=== PATIENT | female | born 1995 | race Hispanic/Latino ===

== ENCOUNTER 2023-12-26 18:35 | Emergency (ER) | payer MEDICARE, SELFPAY ==
[2023-12-26 18:36] VITALS: BMI 29.4
[2023-12-26 18:40] VITALS: BP 132/82
[2023-12-26 18:55] LABS: % Basophils 1.2 % (0-2); % Eosinophils 4.9 % (0-6); % Immature Granulocytes 0.2 % (0-0.5); % Lymphocytes 35.4 % (20.5-51.1); % Monocytes 10.2 % (1.7-9.3); % Neutrophils 48.1 % (42.2-75.2); Absolute Basophils 0.1 10^3/uL (0-0.2); Absolute Eosinophils 0.2 10^3/uL (0-0.7); Absolute Lymphocytes 1.7 10^3/uL (1.2-3.4); Absolute Monocytes 0.5 10^3/uL (0.1-0.6); Absolute Neutrophils 2.4 10^3/uL (1.4-6.5); Hematocrit 29.6 % (37.0-47.0); Hemoglobin 8.8 g/dL (12.0-16.0); Mean Corp Hgb Conc. 29.7 g/dL (33.0-37.0); Mean Corpuscular Hgb 23.8 pg (27.0-31.0); Mean Corpuscular Volume 80.2 fL (81.0-99.0); Mean Platelet Volume 10.4 fL (7.4-10.4); Nucleated Red Blood Cells % 0 %; Platelet Count 388 10^3/uL (130-400); Red Blood Cell Count 3.69 10^6/uL (4.20-5.40); Red Cell Dist. Width 16.7 % (11.5-14.5); White Blood Cell Count 4.9 10^3/uL (4.8-10.8)
[2023-12-26 19:16] LABS: ALT (SGPT) 14 U/L (0-35); AST (SGOT) 26 U/L (14-36); Albumin 4.4 g/dl (3.5-5.0); Alkaline Phosphatase 69 U/L (38-126); Blood Urea Nitrogen 11 mg/dl (7-17); Calcium 9.4 mg/dl (8.4-10.2); Carbon Dioxide 23 mmol/L (22-30); Chloride 103 mmol/L (98-107); Glucose 101 mg/dl (70-99); Potassium 4.1 mmol/L (3.5-5.1); Sodium 135 mmol/L (135-145); Total Bilirubin 1.4 mg/dl (0.2-1.3); Total Protein 7.8 g/dl (6.3-8.2); eGFR > 60.00
--- NOTE | 2023-12-26 20:10 | ED.GENMED ---
History of Present Illness
General
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
Source: patient
Exam Limitations: none
Time Seen by Provider: 12/26/23 19:42
Travel History
Have you had any contact with someone who has COVID-19?: No
Do you have any symptoms of coronavirus? Fever > 100 degrees, chills, cough, shortness of breath, sore throat, loss of taste or smell, muscle aches, or headache?: No
History of Present Illness
History of Present Illness:
This is a 28 year old female that comes in with multiple complaints. States that she has been having a hard time breathing and she has pain in the epigastric area. State that she has blood with urination States that she has not had a period since
the last month. States that she has chest discomfort with SOB, nausea and a headache, with urinary burning. Denies any fever, chills, vomiting, diarrhea, dizziness.
Past History
Past History
ED Past Medical History: None; Negative Asthma, HTN, Hypercholesterolemia or NIDDM
ED Past Surgical History: Gynecological (D&C, , ) and Other (Nerve replacement right arm)
Social History
Tobacco: Smoker
Alcohol: Occasional
Personal: Single
Living: with family
Review of Systems
Review of Systems
All Other Systems: ROS reviewed and negative except as documented in HPI and ROS
Constitutional: Reports no symptoms; Denies fever or chills
EENT: Reports no symptoms
Respiratory: Reports trouble breathing; Denies cough
Cardiac: Reports chest pain
ABD/GI: Reports abdominal pain (Upper abd into chest)
: Reports dysuria and bleeding; Denies frequency or urgency
Musculoskeletal: Reports no symptoms
Skin: Reports no symptoms
Neurological: Reports headache; Denies dizzy
Psychiatric: Reports no symptoms
Phy Exam
General Physical Exam
General Presentation: well appearing and no apparent distress
General age: appears stated age
General Skin: warm and dry
General Habitus: normal
General Mental: alert
General Hydration: appears well hydrated
ENT Exam
ENT Exam: TM's normal, pharynx normal and neck supple
Eye Exam
Eye Exam: EOMI
Cardiovascular Exam
Cardiovascular Exam: regular rate/rhythm, no edema, no murmur and normal peripheral pulses
Pulmonary Exam
Pulmonary Exam: lungs clear, no respiratory distress, no rales, chest non tender, no crackles, no rhonchi, no wheezing and no cough
Gastrointestinal Exam
Gastrointestinal Exam: normal bowel sounds, soft, no organomegaly, no pulsatile mass, non distended and tender (epigastric area with palpation and lower abd tenderness)
Musculoskeletal Exam
Musculoskeletal Exam: full ROM and no edema
Skin Exam
Skin Exam: normal color, warm/dry, no rash and no petechia
Psychiatric Exam
Psychiatric Exam: normal mood/affect
Course
Orders/Labs/Results
Orders:
Orders
12/26/23 18:46
EKG [Electrocardiogram (*1)] Urgent
Reason for Study: Shortness of Breath
EKG- Treatment ONCE
12/26/23 18:51
Type+Screen Urgent
CBC/With Diff [Complete Blood Count/With Diff] Urgent
CMP [Comprehensive Metabolic Panel] Urgent
12/26/23 19:26
Add On- LAB Urgent
Tests Added?: beta hcg quantative
12/26/23 19:27
US Pelvis Only (non-obstetric) Urgent
Comment:
Reason For Exam: post bleeding
12/26/23 19:46
Beta HCG Quantitative Urgent
Comment: ADD ON
12/26/23 20:09
0.9% Sodium Chloride 1000 ml [Nss] 1,000 ml IV BOLUS
Pantoprazole [Protonix IV] 40 mg IV NOW STA
12/26/23 20:10
CR Chest - 2 Views Urgent
Comment:
Reason For Exam: SOB, chest pain
12/26/23 20:28
D-Dimer Urgent
12/26/23 21:05
CT Chest Pe Study Urgent
Comment:
Reason For Exam: Chset pain, SOB, elevated D-dimer
12/26/23 23:00
Urinalysis Reflex To Culture Urgent
Date Specimen was Collected: 12/26/23
Time Specimen was Collected: 22:52
Urine Microscopic Reflex Cult Urgent
Urine Culture Urgent
OMERO Source: U
Specimen Description:
Date Specimen was Collected: 12/26/23
Time Specimen was Collected: 22:52
Abnormal Lab Results
12/26/23 12/26/23 12/26/23
18:51 20:28 23:00
RBC 3.69 L 10^6/uL
(4.20-5.40)
Hgb 8.8 L g/dL
(12.0-16.0)
Hct 29.6 L %
(37.0-47.0)
MCV 80.2 L fL
(81.0-99.0)
MCH 23.8 L pg
(27.0-31.0)
MCHC 29.7 L g/dL
(33.0-37.0)
RDW 16.7 H %
(11.5-14.5)
Monocytes % 10.2 H %
(1.7-9.3)
D-Dimer 1.12 H ug/mlFEU
(0.00-0.50)
Glucose 101 H mg/dl
(70-99)
Total Bilirubin 1.4 H mg/dl
(0.2-1.3)
Leukocyte Esterase Rfl 2+ A
(Negative)
Urine WBC (Reflex) 16-20 A /HPF
(0-5)
Antibody Screen Positive A
(Negative)
12/26/23 18:51
12/26/23 18:51
H/H low, Anemia, Glucose nonfasting. Total jimi very slightly elevated. D-dimer elevated (CT negative), Urine positive for infection (patient is having burning will treat)
Vital Signs
Initial and Last Documented VS:
Initial Vital Signs
Temp Pulse Resp BP Pulse Ox
96.1 F L 72 16 132/82 100
12/26/23 18:40 12/26/23 18:40 12/26/23 18:40 12/26/23 18:40 12/26/23 18:40
Last Documented Vital Signs
Temp Pulse Resp BP Pulse Ox
96.1 F L 72 16 132/82 100
12/26/23 18:40 12/26/23 18:40 12/26/23 18:40 12/26/23 18:40 12/26/23 18:40
MDM/Problems Addressed
Differential Diagnosis Includes:
Gastritis, UTI
MDM/Problems Addressed:
This is a 28 year old female that comes in with multiple complaints. States that she has not had a period since last month after the . State that she has bleeding in her urine and that she has epigastric discomfort.
Will get US and medication for Gastritis. Will check lab.
Back into see patient. reviewed labs and CT scan and US. Will treat for UTI and discharge home.
Chronic conditions affecting care:
NA
Acute Exacerbation and/or Progression of Chronic Illness:
NA
*Radiology
Radiology exam reviewed: radiology read reviewed (CT chest-NO CTA evidence for acute central pulmonary arterial embolus. US-NO sonographic evidence for abdominal endometrial thickening or retained products of conception in the endometrial canal. )
*Pulse Oximetry
Patient hypoxic: no
*EKG
Interpreted by ED Provider?: Yes
Heart Rate: 63
Rate: normal
Rhythm: sinus
[place]: normal axis
Interval: normal interval
QRS Pattern: normal QRS
Ischemia: no ischemia
*[employer] [place] Interpretation
Rate: [place] [employer]- N/A
*Critical Care Note
Total Time (30-74mins, 75-104mins- exclusive of procedures): Not Applicable
ED Attending Note
-
Portions of this chart may have been created with voice recognition software.� Occasional wrong word or��sound alike� substitutions may have occurred due to the inherent limitations of voice recognition software.
Discharge Plan
Departure
Patient Disposition: Home (Routine Discharge)
Date of Disposition: 12/26/23
Time of Disposition: 23:41
Patient with high blood pressure during this ER visit?: Yes
Condition: Good
Covid-19: Not Applicable
Discharge Problem:
UTI (urinary tract infection)
Instructions: Urinary Tract Infection, Adult (DC), BLOOD PRESSURE
Prescriptions:
New
sulfamethoxazole-trimethoprim [Bactrim DS] 800-160 mg tablet
1 tab PO BID Qty: 13 0RF
Referrals:
NONE,* [Family Provider] -
Activity Restrictions/Additional Instructions:
As discussed, your blood work shows that you are anemic. Please start on an Iron Supplement daily. Your CT scan of the chest is normal along with you Ultrasound. 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 You have been given your
first dose of antibiotic here and prescription for home has been sent to your Pharmacy. IF YOU HAVE ANY OTHER CONCERNS PLEASE RETURN TO THE EMERGENCY ROOM.
Interventions
Interventions:
*Risk Screen - Suicide Last Done: 12/26/23 18:40
*General Assessment Last Done: 12/26/23 18:40
*Neglect/Abuse Screening Last Done: 12/26/23 18:40
ED- Fall Risk Assessment Last Done: 12/26/23 21:18
*ED COVID-19 Vaccine History Last Done: 12/26/23 18:40
ED-Female Genitourinary Assessment Last Done: 12/26/23 21:18
Discharge Date and Time
Print Language: MONGOLIAN
[2023-12-26 20:39] LABS: Beta HCG Quantitative < 2.39 mIU/ml
[2023-12-26] MEDS: PROTONIX IV 40 MG IV (20:42)
[2023-12-26] MEDS: NSS 1000 IV (20:42)
[2023-12-26 20:52] LABS: D-Dimer 1.12 ug/mlFEU (0.00-0.50)
[2023-12-26 23:09] LABS: Urine Albumin Negative (Neg - Trace); Urine Bilirubin Negative (Negative); Urine Character Clear (Clear); Urine Color Yellow; Urine Glucose Negative (Negative); Urine Ketone Negative (Negative); Urine Leukocyte 2+ (Negative); Urine Nitrite Negative (Negative); Urine Occult Blood Negative (Negative); Urine Urobilinogen Negative (Neg - 1+)
[2023-12-26 23:19] LABS: Urine Red Blood Cell None Seen /HPF (0-2); Urine Squamous Cell 0-2 /LPF (Few); Urine White Cell 16-20 /HPF (0-5)
[2023-12-27] MEDS: BACTRIM DS 800 MG/160 MG 1 TABLET PO (00:07)
[2023-12-27 00:20] VITALS: BP 116/77
== END 2023-12-27 00:32 | disposition home or self-care (01) ==
LOC: EMR 18:35
PROVIDERS: Clinical Nurse Specialist Family Health; Emergency Medicine; EMERGENCY PHYSICIAN Emergency Medicine
DX: N39.0 Urinary tract infection, site not specified (principal); R51.9 Headache, unspecified; R07.89 Other chest pain; R06.02 Shortness of breath; R10.9 Unspecified abdominal pain; R11.0 Nausea; R03.0 Elevated blood-pressure reading, without diagnosis of hypertension; F17.200 Nicotine dependence, unspecified, uncomplicated; Z98.890 Other specified postprocedural states
CPT/HCPCS: 99285; 96374; 96361; 71046; 71275; 76856; 80053; 81003; 81015; 84702; 85025; 85379; 86850; 86870; 86880; 86900; 86901; 87077; 87086; 87186; 93005; Q9967

== ENCOUNTER 2023-12-28 08:50 | Emergency (ER) | payer MEDICARE, SELFPAY ==
[2023-12-28 08:51] VITALS: BP 124/87
--- NOTE | 2023-12-28 09:24 | ED.GENMED ---
Addendum entered and electronically signed by Fabian Blunt PA-C 12/31/23 07:19:
On Augmentin, appropriate therapy per C&S
Original Note:
History of Present Illness
General
Chief Complaint: Headache
Source: patient
Exam Limitations: none
Time Seen by Provider: 12/28/23 09:23
Nursing documentation reviewed up to this point in time: agreed with
Travel History
Have you had any contact with someone who has COVID-19?: No
Do you have any symptoms of coronavirus? Fever > 100 degrees, chills, cough, shortness of breath, sore throat, loss of taste or smell, muscle aches, or headache?: No
History of Present Illness
History of Present Illness:
The patient is a 28-year-old female who was recently diagnosed with a urinary tract infection in the ED 2 days ago and returns with 24 hours of fever, headache, body aches, nausea and vomiting. Patient reports that she has been taking the
antibiotic as prescribed for her urinary tract infection. She describes generalized lower back pain but no specific severe back pain. She denies sick contacts. She denies cough and sore throat. Patient reports that the headache is worse with
bright light. She reports she has had headaches in the past but this 1 seems more intense.
Past History
Past History
ED Past Medical History: Other (Eczema)
ED Past Surgical History: Gynecological (D&C, , ) and Other (Nerve replacement right arm)
Social History
Tobacco: Smoker
Alcohol: Occasional
Personal: Other
Living: with family
Employment: Other
Family History
Family History: Other
Review of Systems
Review of Systems
Allergies reviewed?: Yes
All Other Systems: ROS reviewed and negative except as documented in HPI and ROS
Constitutional: Reports fever and fatigue
EENT: Reports no symptoms
Respiratory: Reports trouble breathing
Cardiac: Reports no symptoms
ABD/GI: Reports nausea, vomiting and anorexia
: Reports no symptoms
Musculoskeletal: Reports muscle pain
Skin: Reports rash
Neurological: Reports headache
Endocrine: Reports no symptoms
Hematologic/Lymphatic: Reports no symptoms
Psychiatric: Reports no symptoms
Phy Exam
Physical Exam
Physical Exam:
Physical Exam
General: Patient appears nontoxic. Is conversational
Neck: supple. no meningeal signs. Cervical lymphadenopathy bilaterally. Pharynx appears nonerythematous without exudate. Patient able to sit up in range neck without discomfort
Heart: Tachycardic, no murmur
Lungs: no acute respiratory distress. clear bilaterally
Abdomen: normal bowel sounds. not tender. no CVAT
Neuro: alert and oriented. no focal neurological deficits
Skin: Raised scaly patches on right shoulder area and right neck area. No petechial rash
Psychiatric: well kept. interactive and cooperative
Extremities: no edema. no calf tenderness. negative homans. good distal pulses
Course
Orders/Labs/Results
Orders:
Orders
12/28/23 09:24
Test Result ONCE
12/28/23 09:37
Complete Blood Count/With Diff Urgent
Comprehensive Metabolic Panel Urgent
HCG, Urine Qualitative Screen Urgent
Date Specimen was Collected: 12/28/23
Time Specimen was Collected: 09:36
Lipase Urgent
Urinalysis Reflex To Culture Urgent
Date Specimen was Collected: 12/28/23
Time Specimen was Collected: 09:36
Urine Microscopic Reflex Cult Urgent
Urine Culture Urgent
OMERO Source: U
Specimen Description:
Date Specimen was Collected: 12/28/23
Time Specimen was Collected: 09:36
12/28/23 09:59
0.9% Sodium Chloride 1000 ml [Nss] 1,000 ml IV BOLUS
12/28/23 10:01
Acetaminophen [Tylenol] 1,000 mg PO NOW STA
Prochlorperazine [Compazine] 10 mg IV NOW STA
12/28/23 10:05
COVID-19 Antigen Urgent
Source: Nasal Swab
Influenza A+B Rapid Molecular Urgent
OMERO Source: Nasal Swab
Specimen Description:
12/28/23 10:09
Lyme Progressive Urgent
Monotest Urgent
12/28/23 10:16
Rapid Strep Group A Urgent
OMERO Source: Throat/Pharynx
Specimen Description:
Date Specimen was Collected: 12/28/23
Time Specimen was Collected: 10:12
12/28/23 11:49
CefTRIAXone [Rocephin] 1,000 mg IV NOW STA
Abnormal Lab Results
12/28/23
09:37
WBC 4.1 L 10^3/uL
(4.8-10.8)
RBC 3.90 L 10^6/uL
(4.20-5.40)
Hgb 9.3 L g/dL
(12.0-16.0)
Hct 30.1 L %
(37.0-47.0)
MCV 77.2 L fL
(81.0-99.0)
MCH 23.8 L pg
(27.0-31.0)
MCHC 30.9 L g/dL
(33.0-37.0)
RDW 17.0 H %
(11.5-14.5)
MPV 10.8 H fL
(7.4-10.4)
Absolute Lymphs (auto) 0.3 L 10^3/uL
(1.2-3.4)
Immature Gran % 0.7 H %
(0-0.5)
Lymphocytes % 6.1 L %
(20.5-51.1)
Eosinophils % 11.7 H %
(0-6)
Total Bilirubin 1.8 H mg/dl
(0.2-1.3)
Urine Bilirubin 1+ A
(Negative)
Leukocyte Esterase Rfl Trace A
(Negative)
Urine Bacteria (Reflex) Moderate A
(Negative)
12/28/23 09:37
12/28/23 09:37
Vital Signs
Initial and Last Documented VS:
Initial Vital Signs
Pulse Resp BP Pulse Ox
117 18 124/87 100
12/28/23 08:51 12/28/23 08:51 12/28/23 08:51 12/28/23 08:51
Last Documented Vital Signs
Temp Pulse Resp BP Pulse Ox
99.6 F 117 18 123/70 100
12/28/23 10:03 12/28/23 08:51 12/28/23 08:51 12/28/23 09:47 12/28/23 11:00
MDM/Problems Addressed
Differential Diagnosis Includes:
Bacteremia from recent UTI, influenza, COVID, meningitis
MDM/Problems Addressed:
Patient presents with acute fever, headache, body aches and fatigue as well as vomiting
*Pulse Oximetry
Patient hypoxic: no
*Critical Care Note
Total Time (30-74mins, 75-104mins- exclusive of procedures): Not Applicable
Update Note
Update Note:
12:00 PM patient remains nontoxic appearing. She reports her headache is much better. She still has no meningismus. It is doubtful she has a severe bacterial illness such as bacteremia or meningitis given that her white blood cell count and
neutrophil count is normal, however, I did initially recommend that the patient be admitted to the hospital because I am concerned that she has had chills and vomiting in the setting of a urinary tract infection. However, patient adamantly does not
want to be admitted. She reports her nausea and vomiting is much better. She reports that she will definitely come back if she has any persistent vomiting and cannot keep down her antibiotics. Patient has no focal flank pain to suggest infected
kidney stone or hydronephrosis. Patient given precautions that if she has any lightheadedness, lethargy, elevated fever, vomiting that she must return immediately because I did explain to her that I do get concerned when somebody has fever in the
setting of a urinary tract infection. Patient does understand this
ED Attending Note
-
Portions of this chart may have been created with voice recognition software.� Occasional wrong word or��sound alike� substitutions may have occurred due to the inherent limitations of voice recognition software.
Discharge Plan
Departure
Patient Disposition: Home (Routine Discharge)
Date of Disposition: 12/28/23
Time of Disposition: 11:46
Patient with high blood pressure during this ER visit?: Yes
Condition: Good
Covid-19: Not Applicable
Discharge Problem:
Acute headache, Urinary tract infection
Instructions: Headache, Adult (DC), Urinary Tract Infection, Adult ED
Prescriptions:
New
amoxicillin-pot clavulanate 875-125 mg tablet
1 tab PO BID Qty: 10 0RF
ondansetron 4 mg tablet,disintegrating
4 mg PO TID PRN (Reason: nausea and vomiting) 4 Days Qty: 14 0RF
No Action
sulfamethoxazole-trimethoprim [Bactrim DS] 800-160 mg tablet
1 tab PO BID Qty: 13 0RF
Patient Comments:
Pt states that she has taken #3 doses of regimen to date 12/28/23
Probiotic
1 cap PO DAILYPRN PRN (Reason: GI symptoms)
Referrals:
NONE,* [Family Provider] -
Activity Restrictions/Additional Instructions:
Return with any higher fevers. Return with vomiting. Please stop taking the Bactrim antibiotic and start the Augmentin. You should take your first Augmentin tablets tomorrow morning with breakfast.
Interventions
Interventions:
*Risk Screen - Suicide Last Done: 12/28/23 08:51
*General Assessment Last Done: 12/28/23 08:51
*Neglect/Abuse Screening Last Done: 12/28/23 08:51
Discharge Date and Time
Print Language: [place]
[2023-12-28 09:47] VITALS: BP 123/70
[2023-12-28 10:09] LABS: % Basophils 0.2 % (0-2); % Eosinophils 11.7 % (0-6); % Immature Granulocytes 0.7 % (0-0.5); % Lymphocytes 6.1 % (20.5-51.1); % Monocytes 7.3 % (1.7-9.3); Absolute Eosinophils 0.5 10^3/uL (0-0.7); Absolute Lymphocytes 0.3 10^3/uL (1.2-3.4); Absolute Monocytes 0.3 10^3/uL (0.1-0.6); Hematocrit 30.1 % (37.0-47.0); Hemoglobin 9.3 g/dL (12.0-16.0); Mean Corp Hgb Conc. 30.9 g/dL (33.0-37.0); Mean Corpuscular Hgb 23.8 pg (27.0-31.0); Mean Corpuscular Volume 77.2 fL (81.0-99.0); Mean Platelet Volume 10.8 fL (7.4-10.4); Nucleated Red Blood Cells % 0 %; Platelet Count 378 10^3/uL (130-400); White Blood Cell Count 4.1 10^3/uL (4.8-10.8)
[2023-12-28 10:12] LABS: ALT (SGPT) 19 U/L (0-35); AST (SGOT) 26 U/L (14-36); Albumin 4.3 g/dl (3.5-5.0); Alkaline Phosphatase 61 U/L (38-126); Blood Urea Nitrogen 7 mg/dl (7-17); Calcium 9.1 mg/dl (8.4-10.2); Carbon Dioxide 24 mmol/L (22-30); Chloride 106 mmol/L (98-107); Glucose 98 mg/dl (70-99); Lipase 73 U/L (23-300); Potassium 3.5 mmol/L (3.5-5.1); Sodium 136 mmol/L (135-145); Total Bilirubin 1.8 mg/dl (0.2-1.3); Total Protein 7.6 g/dl (6.3-8.2); eGFR > 60.00
[2023-12-28] MEDS: TYLENOL 1000 MG PO (10:18)
[2023-12-28 10:19] LABS: Urine Albumin Negative (Neg - Trace); Urine Bilirubin 1+ (Negative); Urine Character Clear (Clear); Urine Color Yellow; Urine Glucose Negative (Negative); Urine Ketone Negative (Negative); Urine Leukocyte Trace (Negative); Urine Nitrite Negative (Negative); Urine Occult Blood Negative (Negative); Urine Urobilinogen 1+ (Neg - 1+); Urine pH 6.5 (5.0-9.0)
[2023-12-28] MEDS: COMPAZINE 10 MG IV (10:19)
[2023-12-28] MEDS: NSS 1000 IV (10:20)
[2023-12-28 10:28] LABS: Urine Bacteria Moderate (Negative); Urine Red Blood Cell 0-2 /HPF (0-2)
[2023-12-28 10:32] LABS: COVID-19 Antigen Negative (Negative)
[2023-12-28 10:39] LABS: HCG, Urine Qualitative Screen Negative
[2023-12-28 10:57] LABS: Monotest Negative (Negative)
[2023-12-28 11:00] VITALS: BP 124/63
[2023-12-28] MEDS: ROCEPHIN 1000 MG IV (12:06)
[2023-12-28 12:47] VITALS: BP 119/71
[2023-12-28 15:35] LABS: Lyme Antibody Screen, EIA Negative (Negative)
== END 2023-12-28 12:48 | disposition home or self-care (01) ==
LOC: EMR 08:50
PROVIDERS: EMERGENCY PHYSICIAN Emergency Medicine
DX: R51.9 Headache, unspecified (principal); N39.0 Urinary tract infection, site not specified; F17.200 Nicotine dependence, unspecified, uncomplicated
CPT/HCPCS: 99284; 96374; 96375; 96361; 80053; 81003; 81015; 81025; 83690; 85025; 86308; 86618; 87070; 87077; 87086; 87186; 87502; 87811; 87880